=== PATIENT | male | born 1980 | race Caucasian/White ===

== ENCOUNTER 2020-06-15 03:32 | Emergency (ER) | payer OTHER ==
[~2020-06-15 03:32] MED LIST: FLOMAX 0.4 MG0.4 MG PO; FLOMAX0.4 MG PO; IBUPROFEN800 MG PO; KETOROLAC TROME10 MG PO; ONDANSETRON ODT4 MG SL; PERCOCET 5-3251 EACH PO; PYRIDIUM200 MG PO; ZOFRAN4 MG SL
[2020-06-15 04:43] LABS: BASOPHIL 0.5 % (0-2); EOSINOPHIL 0.9 % (0-5); HCT 43.4 % (42.0-52.0); HGB 13.4 g/dl (13.2-18.0); LYMPHOCYTE 21.9 % (15-48); MCH 28.3 pg (25.0-31.0); MCHC 30.9 g/dL (32.0-36.0); MCV 91.6 fL (78.0-100.0); MONOCYTE 6.5 % (0-12); MPV 9.8 fL (6.0-9.5); NEUTROPHIL 69.8 % (41-80); NRBC 0; PLT 311 K/uL (150-400); RBC 4.74 M/uL (4.70-6.00); WBC 10.5 K/uL (4.0-10.5)
[2020-06-15 04:56] LABS: BILIRUBIN NEGATIVE (NEGATIVE); BLOOD 3+ Ery/uL (NEGATIVE); COLOR YELLOW (YELLOW); GLUCOSE (U) NORMAL (NORMAL); LEUKOCYTES NEGATIVE Leu/uL (NEGATIVE); NITRITE NEGATIVE (NEGATIVE); PROTEIN NEGATIVE (NEGATIVE); SPECIFIC GRAVITY >=1.030 (1.001-1.030); UROBILINOGEN 0.2 mg/dL (0.2-1.0); pH 5.5 (5.0-9.0)
[2020-06-15 05:00] LABS: CLARITY HAZY (CLEAR)
[2020-06-15 05:02] LABS: URINARY RBC 20-50
[2020-06-15 05:03] LABS: BACTERIA 1+; MUCOUS TRACE
[2020-06-15 05:06] LABS: BILIRUBIN - TOTAL 0.2 mg/dL (0.2-1.0); BUN/CREAT RATIO (CALC) 13.9 RATIO; CREATININE 1.08 mg/dL (0.67-1.17); GLOBULIN (CALCULATION) 3.6 g/dL; POTASSIUM 4.3 mmol/L (3.5-5.1); TOTAL PROTEIN 6.6 g/dL (6.4-8.2)
[2020-06-15] MEDS ORDERED: KETOROLAC TROME10 MG PO (07:13)
[2020-06-15] MEDS ORDERED: PERCOCET 5-3251 EACH PO (07:13)
[2020-06-15] MEDS ORDERED: ONDANSETRON ODT4 MG SL (07:13)
== END 2020-06-15 07:38 | disposition home or self-care (01) ==
LOC: FER 03:32
PROVIDERS: Emergency Medicine Emergency Medical Services
DX: N13.2 Hydronephrosis with renal and ureteral calculous obstruction (principal); E66.9 Obesity, unspecified; F17.210 Nicotine dependence, cigarettes, uncomplicated; Z87.442 Personal history of urinary calculi; Z88.0 Allergy status to penicillin
CPT/HCPCS: 36415; 80053; 81001; 85025; J1170; J1885; J2405; J7030